=== PATIENT | male | born 1965 ===

== ENCOUNTER → 2021-12-26 | Outpatient (CLI) | payer SELFPAY | LOC: M LABSMTC 12:06 | PROVIDERS: ATTEND Pediatrics | DX: Z11.52 Encounter for screening for COVID-19 (principal) ==

== ENCOUNTER → 2022-01-23 | Outpatient (CLI) | payer SELFPAY | LOC: M LABSMTC 11:39 | PROVIDERS: ATTEND Pediatrics | DX: Z20.822 Contact with and (suspected) exposure to COVID-19 (principal) ==